=== PATIENT | female | born 1955 | race Caucasian/White ===

== ENCOUNTER 2018-01-05 10:07 | Emergency (ER) | payer OTHER ==
[~2018-01-05] VITALS: Ht 154.9 cm; Wt 43.1 kg
[~2018-01-05 10:07] MED LIST: AVAPRO150 MG PO; SINGULAIR 10MG10 MG PO; ZANTAC300 MG PO
== END 2018-01-05 11:05 | disposition home or self-care (01) ==
LOC: ER 10:07
DX: T78.49XA Other allergy, initial encounter (principal); R21 Rash and other nonspecific skin eruption

== ENCOUNTER 2018-08-19 14:16 | Emergency (ER) | payer OTHER ==
[~2018-08-19] VITALS: Ht 152.4 cm; Wt 47.6 kg
== END 2018-08-19 16:57 | disposition home or self-care (01) ==
LOC: ER 14:16
DX: J11.1 Influenza due to unidentified influenza virus with other respiratory manifestations (principal)

== ENCOUNTER 2018-09-30 11:13 | Emergency (ER) | payer OTHER ==
[~2018-09-30] VITALS: Ht 154.9 cm; Wt 45.4 kg
[2018-09-30] MEDS ORDERED: MONTELUKAST SOD10 MG (12:15)
[2018-09-30] MEDS ORDERED: AVAPRO150 MG (12:16)
== END 2018-09-30 12:41 | disposition home or self-care (01) ==
LOC: ER 11:13
DX: M25.571 Pain in right ankle and joints of right foot (principal); M10.071 Idiopathic gout, right ankle and foot

== ENCOUNTER → 2019-03-10 | Emergency (ER) | payer OTHER ==
[~2019-03-10] VITALS: Ht 154.9 cm; Wt 50.3 kg
[~2019-03-10] MED LIST changes: +AVAPRO150 MG; +LIPITOR40 MG PO; +MONTELUKAST SOD10 MG
== END | disposition home or self-care (01) ==
LOC: ER 12:20
DX: H60.8X1 Other otitis externa, right ear (principal)

== ENCOUNTER → 2022-02-17 | Emergency (ER) | payer OTHER ==
[~2022-02-17] VITALS: Ht 157.5 cm; Wt 40.8 kg
== END | disposition home or self-care (01) ==
LOC: ER 09:16
DX: S09.21XA Traumatic rupture of right ear drum, initial encounter (principal); X58.XXXA Exposure to other specified factors, initial encounter; Y93.89 Activity, other specified; Y99.9 Unspecified external cause status; Y92.9 Unspecified place or not applicable; I10 Essential (primary) hypertension

== ENCOUNTER → 2022-08-15 | Outpatient (CLI) | payer OTHER | END | disposition home or self-care (01) | LOC: SONOGRAMA 09:10 | DX: R74.01 Elevation of levels of liver transaminase levels (principal); R31.21 Asymptomatic microscopic hematuria ==

== ENCOUNTER 2024-04-20 07:12 | Outpatient (CLI) | payer OTHER | END 2024-04-20 07:13 | disposition home or self-care (01) | LOC: NUCLEAR 07:12 | PROVIDERS: ATTEND Internal Medicine | DX: I20.9 Angina pectoris, unspecified (principal) ==

== ENCOUNTER 2024-12-28 09:29 | Outpatient (CLI) | payer OTHER | END 2024-12-28 09:33 | disposition home or self-care (01) | LOC: TOM 09:29 | DX: R91.1 Solitary pulmonary nodule (principal) ==